=== PATIENT | male | born 1950 | race Caucasian/White ===

== ENCOUNTER → 2016-03-06 | Outpatient (CLI) | payer OTHER ==
--- NOTE | 2016-03-06 12:32 | DX ---
Chest, Two Views 1143 hours History: Cough, hemoptysis. R 05 Comparison: None. Findings: Cardiac silhouette is within normal range. No congestive heart failure, pleural effusion, or pneumothorax. Right midline 5 mm pulmonary nodule. Bilateral peribronchial thickening. Reticular nodular densities in the left upper lobe and left lower lobe. Impression: 1. Reticular nodular opacities left upper lobe and left lower lobe which may represent bronchioalveol ar disease or acute pneumonitis. 2. Right midlung field 5 mm nonspecific pulmonary nodule. 3. Chronic bronchitis with bilateral peribronchial thickening. 4. If there are no prior studies for comparison, recommend noncontrast CT chest for further imaging. A Follow-Up Required test result notification was sent via the [facility] service, 12:29:26 PM, 03/06/2016 , [facility] Message ID [id number].
== END ==
LOC: BRMIMAGING 11:24
PROVIDERS: ATTEND Physician Assistant Medical
DX: R91.1 Solitary pulmonary nodule (principal); J42 Unspecified chronic bronchitis
CPT/HCPCS: 71020-PO

== ENCOUNTER → 2016-06-06 | Outpatient (CLI) | payer OTHER | LOC: BRMIMAGING 11:07 | PROVIDERS: ATTEND Family Medicine | DX: N28.9 Disorder of kidney and ureter, unspecified (principal) | CPT/HCPCS: 76770-PO ==